=== PATIENT | male | born 1960 | race Caucasian/White ===

== ENCOUNTER 2020-11-04 09:41 | Day surgery (SDCO) | payer OTHER ==
[~2020-11-04] VITALS: Ht 182.9 cm; Wt 96.7 kg
[2020-11-04 10:24] LABS: BASOPHIL 0.7 % (0-2); EOSINOPHIL 0.4 % (0-5); HCT 42.5 % (42.0-52.0); HGB 14.8 g/dl (13.2-18.0); LYMPHOCYTE 16.1 % (15-48); MCH 29.2 pg (25.0-31.0); MCHC 34.8 g/dL (32.0-36.0); MONOCYTE 6.3 % (0-12); NEUTROPHIL 75.3 % (41-80); NRBC 0; PLT 161 K/uL (150-400); RBC 5.06 M/uL (4.70-6.00); RDW 13.5 % (11.5-14.0); WBC 7.4 K/uL (4.0-10.5)
[2020-11-04 10:49] LABS: CREATININE 0.82 mg/dL (0.67-1.17); POTASSIUM 3.9 mmol/L (3.5-5.1)
[2020-11-04 10:50] LABS: ALBUMIN 4.2 g/dL (3.4-5.0); BILIRUBIN - TOTAL 0.5 mg/dL (0.2-1.0); GLOBULIN (CALCULATION) 3.1 g/dL; TOTAL PROTEIN 7.3 g/dL (6.4-8.2)
[2020-11-04 10:51] LABS: INR 1.07 (0.9-1.2); PROTHROMBIN TIME 13.2 SECONDS (11.4-13.6); PTT 24.1 SECONDS (22.2-34.7)
[2020-11-04] MEDS ORDERED: ASPIRIN EC81 MG PO (16:46)
[2020-11-05 04:28] LABS: BASOPHIL 0.4 % (0-2); EOSINOPHIL 0.5 % (0-5); HCT 44.9 % (42.0-52.0); HGB 15.2 g/dl (13.2-18.0); LYMPHOCYTE 29.5 % (15-48); MCH 29.3 pg (25.0-31.0); MCHC 33.9 g/dL (32.0-36.0); MCV 86.5 fL (78.0-100.0); MONOCYTE 7.6 % (0-12); MPV 9.9 fL (6.0-9.5); NEUTROPHIL 61.4 % (41-80); NRBC 0; PLT 174 K/uL (150-400); RBC 5.19 M/uL (4.70-6.00); WBC 7.7 K/uL (4.0-10.5)
[2020-11-05 04:48] LABS: ALBUMIN 4.1 g/dL (3.4-5.0); BILIRUBIN - TOTAL 0.6 mg/dL (0.2-1.0); BUN/CREAT RATIO (CALC) 25.6 RATIO; CREATININE 0.9 mg/dL (0.67-1.17); GLOBULIN (CALCULATION) 3.2 g/dL; MAGNESIUM 2.2 mg/dL (1.8-2.4); PHOSPHORUS 3.2 mg/dL (2.6-4.7); POTASSIUM 5.2 mmol/L (3.5-5.1); TOTAL PROTEIN 7.3 g/dL (6.4-8.2)
[2020-11-05 04:56] LABS: PRO-BNP 37 pg/mL (<125)
[2020-11-05] MEDS ORDERED: ULTRAM50 MG PO (06:55)
[2020-11-05] MEDS ORDERED: LISINOPRIL10 MG PO (06:56)
[2020-11-05] MEDS ORDERED: MOBIC7.5 MG PO (06:56)
[2020-11-05] MEDS ORDERED: ASPIRIN EC81 MG PO (13:12)
[2020-11-05] MEDS ORDERED: ZOFRAN4 M1 PO (13:13)
[2020-11-05] MEDS ORDERED: NITROQUIK SL0.4 MG SL (13:14)
== END 2020-11-05 13:43 | disposition home or self-care (01) ==
LOC: FER 09:41 → FTCU 15:19
PROVIDERS: Emergency Medicine; Nurse Practitioner; ADMIT Internal Medicine
DX: R55 Syncope and collapse (principal); I11.9 Hypertensive heart disease without heart failure; R94.31 Abnormal electrocardiogram [ECG] [EKG]; Z20.822 Contact with and (suspected) exposure to COVID-19; Z86.16 Personal history of COVID-19
CPT/HCPCS: 36415; 71045; 80053; 83735; 83880; 84100; 84484; 85025; 85610; 85730; 93005; 94010; 94760; G0378; J1650; J2405; J7030; U0002